=== PATIENT | female | born 1955 | race Caucasian/White ===

== ENCOUNTER 2020-06-20 12:55 | Observation (INO) | payer OTHER ==
[2020-06-20 13:39] VITALS: TEMP 98.5; BMI 26.0
[2020-06-20] MEDS ORDERED: ACETAMINOPHEN 1000 MG/100 ML VIAL (NON FORMULARY) IVPB ONE (13:58)
[2020-06-20] MEDS ORDERED: AZITHROMYCIN IVPB 500 MG in DEXTROSE 5%-WATER - 250 ML IVPB ONE (14:06)
[2020-06-20] MEDS ORDERED: ACETAMINOPHEN INJECTION 100 ML IVPB ONE (15:01)
[2020-06-20] MEDS ORDERED: AZITHROMYCIN IVPB 500 MG/250 ML BAG IVPB ONE (15:01)
[2020-06-20 15:14] LABS: VENOUS BASE EXCESS -0.7 mmol/L (-2-2); VENOUS O2 SATURATION 78.1 % (70-80); VENOUS PCO2 38.7 mmHg (38-52); VENOUS PH 7.406 (7.310-7.410)
[2020-06-20 15:20] LABS: BASO % 0.7 % (0-2.0); EOS % 1.4 % (0-4.5); HEMATOCRIT 44.3 % (32.4-45.2); HEMOGLOBIN 14.7 GM/dL (10.7-15.3); LYMPH % 31.9 % (8-40); MCH 28.3 pg (25.7-33.7); MCHC 33.2 g/dl (32.0-36.0); MEAN CELL VOLUME 85.5 fl (80-96); MEAN PLT VOLUME 10.3 fl (7.5-11.1); MONO % 8.7 % (3.8-10.2); NEUT % 57.3 % (42.8-82.8); PLATELET COUNT 194 K/MM3 (134-434); RBC 5.19 M/mm3 (3.60-5.2); RDW 15.2 % (11.6-15.6); WHITE BLOOD COUNT 7.4 K/mm3 (4.0-10.0)
[2020-06-20 15:26] LABS: INR 1.03 (0.83-1.09); PROTHROMBIN TIME (PATIENT) 12.5 SEC (9.7-13.0)
[2020-06-20 15:29] LABS: ACTIVATED PTT 33.8 SECONDS (25.2-36.5)
[2020-06-20 15:40] LABS: CHLORIDE 112 mmol/L (98-107); POTASSIUM 4.4 mmol/L (3.5-5.1); SODIUM 142 mmol/L (136-145)
[2020-06-20 15:41] LABS: CALCIUM 8.7 mg/dL (8.5-10.1)
[2020-06-20 15:42] LABS: ALBUMIN 3.9 g/dl (3.4-5.0); ANION GAP 5 MMOL/L (8-16); BLOOD UREA NITROGEN 8.7 mg/dL (7-18); CO2 25 mmol/L (21-32); GLUCOSE,RANDOM 87 mg/dL (74-106)
[2020-06-20 15:44] LABS: BILIRUBIN,DIRECT 0.1 mg/dL (0.0-0.2)
[2020-06-20 15:45] LABS: CREATININE 0.8 mg/dL (0.55-1.3); SGOT/AST 14 U/L (15-37); SGPT/ALT 16 U/L (13-61)
[2020-06-20 15:46] LABS: BILIRUBIN,TOTAL 0.3 mg/dL (0.2-1); TOT PROT 7.1 g/dl (6.4-8.2)
[2020-06-20 15:48] LABS: ALK PHOS 129 U/L (45-117)
[2020-06-20 15:49] LABS: LDH 204 U/L (84-246)
[2020-06-20 16:34] VITALS: BP 149/77; PULSE 68
[2020-06-20] MEDS ORDERED: LIDOCAINE 5% TOPICAL PATCH TP ONE (17:07)
[2020-06-20] MEDS ORDERED: LIDOCAINE 5% TOPICAL PATCH ONE (17:12)
[2020-06-20] MEDS ORDERED: IBUPROFEN 200 MG TABLET PO ONE (21:21)
[2020-06-20] MEDS ORDERED: IBUPROFEN 400 MG TABLET (FP) PO ONE (21:32)
[2020-06-20] MEDS ORDERED: LIDOCAINE PATCH REMOVAL MC SCH (22:00)
== END 2020-06-20 23:00 | disposition home or self-care (01) ==
LOC: JER 12:55 → JERBED 18:49
PROVIDERS: ADMIT Hospitalist; ATTEND Hospitalist
PROC: 3E033NZ Introduction of Analgesics, Hypnotics, Sedatives into Peripheral Vein, Percutaneous Approach (ICD-10-PCS; principal; 2020-06-20)
PROC: 3E03329 Introduction of Other Anti-infective into Peripheral Vein, Percutaneous Approach (ICD-10-PCS; 2020-06-20)
DX: R07.9 Chest pain, unspecified (principal); R06.02 Shortness of breath; Z21 Asymptomatic human immunodeficiency virus [HIV] infection status; F41.8 Other specified anxiety disorders; I10 Essential (primary) hypertension; E78.5 Hyperlipidemia, unspecified; M54.9 Dorsalgia, unspecified; G89.29 Other chronic pain; R05 Cough; F17.210 Nicotine dependence, cigarettes, uncomplicated
CPT/HCPCS: 36415; 71045-TC-FY; 80053; 82248; 82550; 82728; 82803; 83605; 83615; 83880; 84484; 85025; 85379; 85610; 85730; 86140; 87040; 87804; 93005; 93010; 96365; 96375; 99285-25; C9803; G0378; J0131; U0003

== ENCOUNTER 2022-07-28 11:55 | Emergency (ER) | payer OTHER ==
[2022-07-28 12:13] VITALS: TEMP 98; BMI 24.6
[2022-07-28] MEDS ORDERED: DEXAMETHASONE SOD PHOSPHATE 10 MG/1 ML VIAL IVPUSH ONE (14:20)
[2022-07-28] MEDS ORDERED: ALBUTEROL SO4 2.5/IPRATROPIUM 0.5 INH SOL 3 ML VIAL.NEB. NEB ONE ×2 (14:20→14:45)
[2022-07-28] MEDS ORDERED: CYCLOBENZAPRINE HCL 10 MG TABLET (FP) PO ONE (14:22)
[2022-07-28] MEDS ORDERED: ACETAMINOPHEN 325 MG TABLET (FP) PO ONE (14:22)
[2022-07-28 14:42] LABS: EOS % 0.5 % (0-4.5); HEMATOCRIT 43.1 % (32.4-45.2); HEMOGLOBIN 13.7 GM/dL (10.7-15.3); LYMPH % 31.6 % (8-40); MCH 26.8 pg (25.7-33.7); MCHC 31.9 g/dl (32.0-36.0); MEAN PLT VOLUME 9.4 fl (7.5-11.1); MONO % 8.2 % (3.8-10.2); NEUT % 58.7 % (42.8-82.8); PLATELET COUNT 193 10^3/uL (134-434); RBC 5.12 M/mm3 (3.60-5.2); RDW 15.9 % (11.6-15.6); WHITE BLOOD COUNT 6.7 K/mm3 (4.0-10.0)
[2022-07-28] MEDS ORDERED: DEXAMETHASONE SOD PHOSPHATE 10 MG/1 ML VIAL ONE (14:45)
[2022-07-28] MEDS ORDERED: CYCLOBENZAPRINE HCL 5 MG TABLET ONE (14:46)
[2022-07-28] MEDS ORDERED: ACETAMINOPHEN 325 MG TABLET (FP) ONE (14:46)
[2022-07-28 15:11] LABS: CALCIUM 9.5 mg/dL (8.5-10.1)
[2022-07-28 15:12] LABS: ALBUMIN 3.8 g/dl (3.4-5.0); BLOOD UREA NITROGEN 12.4 mg/dL (7-18)
[2022-07-28 15:15] LABS: CREATININE 0.7 mg/dL (0.55-1.3)
[2022-07-28 15:16] LABS: BILIRUBIN,TOTAL 0.4 mg/dL (0.2-1)
[2022-07-28 16:48] VITALS: BP 150/63; PULSE 76; RESP 20
== END 2022-07-28 16:49 | disposition home or self-care (01) ==
LOC: JER 11:55
PROC: 3E033GC Introduction of Other Therapeutic Substance into Peripheral Vein, Percutaneous Approach (ICD-10-PCS; principal; 2022-07-28)
PROC: 3E0F7GC Introduction of Other Therapeutic Substance into Respiratory Tract, Via Natural or Artificial Opening (ICD-10-PCS; 2022-07-28)
DX: R07.9 Chest pain, unspecified (principal)
CPT/HCPCS: 0241U-QW; 36415; 71046-TC-FY; 80053; 84484; 85025; 93005; 93010; 99285-25; J1100

== ENCOUNTER 2023-03-11 01:09 | Inpatient (IN) | payer MEDICARE, OTHER ==
[2023-03-11] MEDS ORDERED: ONDANSETRON 4 MG/2 ML VIAL IVPUSH ONE (01:54)
[2023-03-11] MEDS ORDERED: morphine CARPU-JECT 4 MG/1 ML DISP.SYRIN IVPUSH ONE ×2 (01:54→03:08)
[2023-03-11] MEDS ORDERED: morphine SULFATE 4 MG/ML VIAL ONE ×2 (02:05→03:09)
[2023-03-11] MEDS ORDERED: ONDANSETRON 4 MG/2 ML VIAL ONE ×2 (02:05→11:03)
[2023-03-11 02:37] LABS: HEMATOCRIT 42.8 % (32.4-45.2); HEMOGLOBIN 14.2 GM/dL (10.7-15.3); MCH 27.9 pg (25.7-33.7); MCHC 33.2 g/dl (32.0-36.0); MEAN PLT VOLUME 10.2 fl (7.5-11.1); PLATELET COUNT 168 10^3/uL (134-434); RDW 15.1 % (11.6-15.6); WHITE BLOOD COUNT 10.2 K/mm3 (4.0-10.0)
[2023-03-11 02:59] LABS: INR 1.05 (0.83-1.09); PROTHROMBIN TIME (PATIENT) 12.2 SEC (9.7-13.0)
[2023-03-11 03:02] LABS: ACTIVATED PTT 29.7 SECONDS (25.2-36.5)
[2023-03-11 03:06] LABS: POTASSIUM 3.4 mmol/L (3.5-5.1)
[2023-03-11 03:08] LABS: CALCIUM 9.7 mg/dL (8.5-10.1)
[2023-03-11 03:09] LABS: ALBUMIN 3.7 g/dl (3.4-5.0); BLOOD UREA NITROGEN 13.5 mg/dL (7-18)
[2023-03-11 03:14] LABS: TOT PROT 6.6 g/dl (6.4-8.2)
[2023-03-11 03:35] LABS: BILIRUBIN,TOTAL 0.4 mg/dL (0.2-1)
[2023-03-11] MEDS ORDERED: morphine CARPU-JECT 2 MG/1 ML DISP.SYRIN IVPUSH PRN (04:32)
[2023-03-11] MEDS ORDERED: POTASSIUM CHLORIDE ORAL LIQUID 20 MEQ/15 ML PO ONE ×2 (04:33→14:00)
[2023-03-11] MEDS ORDERED: hydrOXYzine PAMOATE 25 MG CAPSULE (FP) PO PRN (05:09)
[2023-03-11] MEDS ORDERED: POTASSIUM CHLORIDE ORAL LIQUID 20 MEQ/15 ML ONE (05:22)
[2023-03-11] MEDS ORDERED: HYDROmorphone HCl 2 MG/ML VIAL IVPUSH PRN (05:38)
[2023-03-11] MEDS ORDERED: LACTATED RINGERS SOLUTION 1,000 ML/1,000 ML INFUS.BAG IV SCH ×2 (05:45→13:45)
[2023-03-11] MEDS ORDERED: HYDROmorphone HCl 2 MG/ML VIAL ONE ×3 (08:32→17:16)
[2023-03-11] MEDS ORDERED: hydrOXYzine PAMOATE 25 MG CAPSULE (FP) PO ONE (08:32)
[2023-03-11] MEDS ORDERED: PANTOPRAZOLE 40 MG TABLET PO ONE (09:37)
[2023-03-11] MEDS ORDERED: ESCITALOPRAM OXALATE 10 MG TABLET ONE (09:38)
[2023-03-11] MEDS ORDERED: LISINOPRIL 20 MG TABLET ONE (09:38)
[2023-03-11] MEDS ORDERED: morphine SO4 SUSTAINED ACTING 30 MG TABLET.SA PO ONE ×2 (09:38→14:24)
[2023-03-11] MEDS ORDERED: ONDANSETRON 4 MG/2 ML VIAL IVPB PRN (09:47)
[2023-03-11] MEDS ORDERED: HYDROmorphone HCl 2 MG/ML VIAL IVPB PRN (09:48)
[2023-03-11] MEDS: ESCITALOPRAM OXALATE 10 MG TABLET PO SCH (09:55)
[2023-03-11] MEDS: BENZTROPINE MESYLATE 0.5 MG TABLET (FP) PO SCH (09:55)
[2023-03-11] MEDS: LISINOPRIL 20 MG TABLET PO SCH (09:56)
[2023-03-11] MEDS: ABACAVIR/DOLUTEGRAVIR/LAMIVUDI (TRIUMEQ) TABLET PO SCH (09:56)
[2023-03-11] MEDS: risperiDONE 1 MG TABLET PO SCH (09:56)
[2023-03-11] MEDS: PANTOPRAZOLE 40 MG TABLET PO SCH (09:56)
[2023-03-11] MEDS ORDERED: MORPHINE SULFATE 60 MG PO SCH (10:00)
[2023-03-11] MEDS ORDERED: morphine SO4 SUSTAINED ACTING 30 MG TABLET.SA PO SCH (10:00)
[2023-03-11] MEDS ORDERED: HYDROmorphone HCl 2 MG/ML VIAL IVPB ONE (10:45)
[2023-03-11 12:34] LABS: VENOUS BASE EXCESS 0.3 mmol/L (-2-2); VENOUS O2 SATURATION 99.6 % (70-80); VENOUS PCO2 22.9 mmHg (38-52); VENOUS PH 7.571 (7.310-7.410)
[2023-03-11 13:02] LABS: POTASSIUM 3.2 mmol/L (3.5-5.1)
[2023-03-11 13:04] LABS: ALBUMIN 3.4 g/dl (3.4-5.0)
[2023-03-11 13:05] LABS: BLOOD UREA NITROGEN 13.9 mg/dL (7-18); MAGNESIUM 1.4 mg/dL (1.8-2.4)
[2023-03-11 13:06] LABS: CREATININE 0.7 mg/dL (0.55-1.3)
[2023-03-11 13:08] LABS: PHOSPHOROUS 2.6 mg/dL (2.5-4.9)
[2023-03-11 13:09] LABS: BILIRUBIN,TOTAL 0.5 mg/dL (0.2-1); TOT PROT 6.2 g/dl (6.4-8.2)
[2023-03-11 13:23] LABS: LACTIC ACID 2.2 mmol/L (0.4-2.0)
[2023-03-11] MEDS: ACETAMINOPHEN 1000 MG/100 ML BAG IVPB SCH (13:59)
[2023-03-11] MEDS ORDERED: KETOROLAC TROMETHAMINE 30 MG/1 ML VIAL IVPUSH ONE (14:00)
[2023-03-11] MEDS: morphine SO4 SUSTAINED ACTING 30 MG TABLET.SA PO SCH ×2 (14:41→21:59)
[2023-03-11] MEDS: HYDROmorphone HCl 2 MG/ML VIAL IVPB PRN (17:30)
[2023-03-11 18:33] VITALS: BMI 22.3
[2023-03-11] MEDS: DOCUSATE SODIUM 100 MG CAPSULE (FP) PO SCH (21:40)
[2023-03-11] MEDS: ATORVASTATIN CA 10 MG TABLET (FP) PO SCH (21:40)
[2023-03-12] MEDS: ACETAMINOPHEN 1000 MG/100 ML BAG IVPB SCH ×2 (01:06→06:01)
[2023-03-12] MEDS: morphine SO4 SUSTAINED ACTING 30 MG TABLET.SA PO SCH ×3 (06:00→22:03)
[2023-03-12 09:14] LABS: BASO % 0.4 % (0-2.0); EOS % 0.4 % (0-4.5); HEMATOCRIT 28.5 % (32.4-45.2); HEMOGLOBIN 9.6 GM/dL (10.7-15.3); LYMPH % 29.5 % (8-40); MCH 28.8 pg (25.7-33.7); MCHC 33.7 g/dl (32.0-36.0); MEAN CELL VOLUME 85.4 fl (80-96); MEAN PLT VOLUME 10.9 fl (7.5-11.1); MONO % 12.4 % (3.8-10.2); NEUT % 57.3 % (42.8-82.8); PLATELET COUNT 138 10^3/uL (134-434); RBC 3.34 M/mm3 (3.60-5.2); RDW 15.2 % (11.6-15.6); WHITE BLOOD COUNT 8.1 K/mm3 (4.0-10.0)
[2023-03-12 09:15] LABS: HEMOGLOBIN 9.6 GM/dL (10.7-15.3); MCH 28.1 pg (25.7-33.7); MEAN CELL VOLUME 85.2 fl (80-96); MEAN PLT VOLUME 11.3 fl (7.5-11.1); PLATELET COUNT 139 10^3/uL (134-434); RDW 15.3 % (11.6-15.6); WHITE BLOOD COUNT 7.8 K/mm3 (4.0-10.0)
[2023-03-12 09:18] LABS: POTASSIUM 3.8 mmol/L (3.5-5.1)
[2023-03-12 09:21] LABS: ALBUMIN 3.1 g/dl (3.4-5.0); BLOOD UREA NITROGEN 14.8 mg/dL (7-18); CALCIUM 8.1 mg/dL (8.5-10.1)
[2023-03-12 09:25] LABS: CREATININE 0.8 mg/dL (0.55-1.3)
[2023-03-12 09:26] LABS: BILIRUBIN,TOTAL 0.4 mg/dL (0.2-1); TOT PROT 5.4 g/dl (6.4-8.2)
[2023-03-12] MEDS: risperiDONE 1 MG TABLET PO SCH (09:32)
[2023-03-12] MEDS: POLYETHYLENE GLYCOL (HEALTHYLAX) 3350 17 GM PACKET PO SCH (09:32)
[2023-03-12] MEDS: PANTOPRAZOLE 40 MG TABLET PO SCH (09:33)
[2023-03-12] MEDS: ESCITALOPRAM OXALATE 10 MG TABLET PO SCH (09:33)
[2023-03-12] MEDS: DOCUSATE SODIUM 100 MG CAPSULE (FP) PO SCH ×2 (09:33→22:02)
[2023-03-12] MEDS: LISINOPRIL 20 MG TABLET PO SCH (09:33)
[2023-03-12] MEDS ORDERED: KETOROLAC TROMETHAMINE 30 MG/1 ML VIAL IVPUSH SCH (11:00)
[2023-03-12] MEDS: BENZTROPINE MESYLATE 0.5 MG TABLET (FP) PO SCH (11:25)
[2023-03-12] MEDS: ABACAVIR/DOLUTEGRAVIR/LAMIVUDI (TRIUMEQ) TABLET PO SCH (11:26)
[2023-03-12] MEDS: SODIUM CHLORIDE 1,000 ML IV SCH (13:25)
[2023-03-12] MEDS: KETOROLAC TROMETHAMINE 30 MG/1 ML VIAL IVPUSH SCH (17:01)
[2023-03-12] MEDS ORDERED: MAGNESIUM SULF 50% (8.12 MEQ/2 ML-1 GM VIAL) IVPB ONE (17:03)
[2023-03-12] MEDS: ATORVASTATIN CA 10 MG TABLET (FP) PO SCH (22:02)
[2023-03-13] MEDS: KETOROLAC TROMETHAMINE 30 MG/1 ML VIAL IVPUSH SCH ×3 (02:06→17:08)
[2023-03-13] MEDS: morphine SO4 SUSTAINED ACTING 30 MG TABLET.SA PO SCH ×3 (06:44→22:47)
[2023-03-13 08:19] LABS: BASO % 0.7 % (0-2.0); EOS % 0.9 % (0-4.5); HEMATOCRIT 24.7 % (32.4-45.2); HEMOGLOBIN 8.2 GM/dL (10.7-15.3); LYMPH % 35.3 % (8-40); MCHC 33.3 g/dl (32.0-36.0); MEAN CELL VOLUME 84.1 fl (80-96); MONO % 12.5 % (3.8-10.2); NEUT % 50.6 % (42.8-82.8); PLATELET COUNT 117 10^3/uL (134-434); RBC 2.94 M/mm3 (3.60-5.2); RDW 15.3 % (11.6-15.6)
[2023-03-13 08:34] LABS: POTASSIUM 3.5 mmol/L (3.5-5.1)
[2023-03-13 08:40] LABS: CALCIUM 8.1 mg/dL (8.5-10.1)
[2023-03-13 08:42] LABS: ALBUMIN 2.7 g/dl (3.4-5.0); BLOOD UREA NITROGEN 14.9 mg/dL (7-18); MAGNESIUM 2.1 mg/dL (1.8-2.4)
[2023-03-13 08:44] LABS: CREATININE 0.7 mg/dL (0.55-1.3); PHOSPHOROUS 3.1 mg/dL (2.5-4.9)
[2023-03-13 08:45] LABS: BILIRUBIN,TOTAL 0.4 mg/dL (0.2-1); TOT PROT 4.9 g/dl (6.4-8.2)
[2023-03-13] MEDS ORDERED: ENOXAPARIN NA (PORCINE) 40 MG/0.4 ML DISP.SYRIN SQ SCH (10:00)
[2023-03-13] MEDS: risperiDONE 1 MG TABLET PO SCH (10:10)
[2023-03-13] MEDS: LISINOPRIL 20 MG TABLET PO SCH (10:10)
[2023-03-13] MEDS: BENZTROPINE MESYLATE 0.5 MG TABLET (FP) PO SCH (10:10)
[2023-03-13] MEDS: ESCITALOPRAM OXALATE 10 MG TABLET PO SCH (10:10)
[2023-03-13] MEDS: ABACAVIR/DOLUTEGRAVIR/LAMIVUDI (TRIUMEQ) TABLET PO SCH (10:10)
[2023-03-13] MEDS: DOCUSATE SODIUM 100 MG CAPSULE (FP) PO SCH ×2 (10:11→22:48)
[2023-03-13] MEDS: PANTOPRAZOLE 40 MG TABLET PO SCH (10:11)
[2023-03-13] MEDS: POLYETHYLENE GLYCOL (HEALTHYLAX) 3350 17 GM PACKET PO SCH (10:12)
[2023-03-13] MEDS: SODIUM CHLORIDE 1,000 ML IV SCH (13:43)
[2023-03-13] MEDS: HYDROmorphone HCl 2 MG/ML VIAL IVPB PRN (19:54)
[2023-03-13] MEDS: ATORVASTATIN CA 10 MG TABLET (FP) PO SCH (22:48)
[2023-03-14] MEDS: KETOROLAC TROMETHAMINE 30 MG/1 ML VIAL IVPUSH SCH (02:21)
[2023-03-14] MEDS: morphine SO4 SUSTAINED ACTING 30 MG TABLET.SA PO SCH ×2 (05:52→22:54)
[2023-03-14 07:12] LABS: BASO % 0.8 % (0-2.0); EOS % 1.3 % (0-4.5); HEMATOCRIT 21.3 % (32.4-45.2); LYMPH % 41.8 % (8-40); MCH 27.9 pg (25.7-33.7); MCHC 32.3 g/dl (32.0-36.0); MEAN CELL VOLUME 86.6 fl (80-96); MEAN PLT VOLUME 10.4 fl (7.5-11.1); MONO % 9.5 % (3.8-10.2); NEUT % 46.6 % (42.8-82.8); PLATELET COUNT 116 10^3/uL (134-434); RBC 2.46 M/mm3 (3.60-5.2); RDW 15.2 % (11.6-15.6); WHITE BLOOD COUNT 4.2 K/mm3 (4.0-10.0)
[2023-03-14 07:21] LABS: HEMOGLOBIN 6.9 GM/dL (10.7-15.3)
[2023-03-14 08:03] LABS: POTASSIUM 3.5 mmol/L (3.5-5.1)
[2023-03-14 08:07] LABS: ALBUMIN 2.3 g/dl (3.4-5.0); MAGNESIUM 1.8 mg/dL (1.8-2.4)
[2023-03-14 08:10] LABS: CREATININE 0.6 mg/dL (0.55-1.3); PHOSPHOROUS 3.4 mg/dL (2.5-4.9)
[2023-03-14 08:11] LABS: BILIRUBIN,TOTAL 0.4 mg/dL (0.2-1); TOT PROT 4.2 g/dl (6.4-8.2)
[2023-03-14 08:53] LABS: RETICULOCYTES 1.55 % (0.5-1.5)
[2023-03-14] MEDS ORDERED: HYDROmorphone HCl 2 MG/ML VIAL IVPB PRN (08:59)
[2023-03-14] MEDS ORDERED: hydrOXYzine PAMOATE 25 MG CAPSULE (FP) PO PRN ×2 (08:59→14:31)
[2023-03-14] MEDS ORDERED: ONDANSETRON 4 MG/2 ML VIAL IVPB PRN ×2 (08:59→14:31)
[2023-03-14] MEDS ORDERED: ceFAZolin SODIUM 1 GM VIAL ONE (09:34)
[2023-03-14] MEDS ORDERED: DOCUSATE SODIUM 100 MG CAPSULE (FP) PO SCH (10:00)
[2023-03-14] MEDS ORDERED: risperiDONE 1 MG TABLET PO SCH (10:00)
[2023-03-14] MEDS ORDERED: BENZTROPINE MESYLATE 0.5 MG TABLET (FP) PO SCH (10:00)
[2023-03-14] MEDS ORDERED: PANTOPRAZOLE 40 MG TABLET PO SCH (10:00)
[2023-03-14] MEDS ORDERED: ESCITALOPRAM OXALATE 10 MG TABLET PO SCH (10:00)
[2023-03-14] MEDS ORDERED: ABACAVIR/DOLUTEGRAVIR/LAMIVUDI (TRIUMEQ) TABLET PO SCH (10:00)
[2023-03-14] MEDS ORDERED: LISINOPRIL 20 MG TABLET PO SCH (10:00)
[2023-03-14] MEDS ORDERED: POLYETHYLENE GLYCOL (HEALTHYLAX) 3350 17 GM PACKET PO SCH (10:00)
[2023-03-14] MEDS ORDERED: PROPOFOL 40 ML ONE (10:28)
[2023-03-14] MEDS ORDERED: LIDOCAINE HCL/PF 2% SDV 5ML VIAL ONE ×2 (10:28→10:34)
[2023-03-14] MEDS ORDERED: SUCCINYLCHOLINE CHLORIDE 200 MG/10 ML SYRINGE ONE (10:31)
[2023-03-14] MEDS ORDERED: MIDAZOLAM HCL 2 MG/2 ML SINGLE DOSE VIAL ONE (10:32)
[2023-03-14] MEDS ORDERED: DEXAMETHASONE SOD PHOSPHATE 4 MG/1 ML VIAL ONE (10:33)
[2023-03-14] MEDS ORDERED: ROPIVACAINE HCL 0.5% 30ML VIAL ONE (10:33)
[2023-03-14] MEDS ORDERED: ROCURONIUM BROMIDE 50 MG/5 ML SYRINGE ONE ×2 (11:44→13:12)
[2023-03-14] MEDS ORDERED: ceFAZolin SODIUM 1 GM VIAL IVPB ONE (11:50)
[2023-03-14] MEDS ORDERED: SUGAMMADEX SODIUM 200 MG/2 ML VIAL ONE (12:34)
[2023-03-14] MEDS ORDERED: morphine SO4 SUSTAINED ACTING 30 MG TABLET.SA PO SCH (14:00)
[2023-03-14 15:50] LABS: HEMATOCRIT 31.2 % (32.4-45.2); HEMOGLOBIN 10.3 GM/dL (10.7-15.3); MCH 28.8 pg (25.7-33.7); MEAN CELL VOLUME 87.2 fl (80-96); MEAN PLT VOLUME 10.6 fl (7.5-11.1); PLATELET COUNT 114 10^3/uL (134-434); RBC 3.58 M/mm3 (3.60-5.2); RDW 14.9 % (11.6-15.6); WHITE BLOOD COUNT 6.8 K/mm3 (4.0-10.0)
[2023-03-14] MEDS: HYDROmorphone HCl 2 MG/ML VIAL IVPB PRN ×2 (18:19→23:30)
[2023-03-14] MEDS ORDERED: ceFAZolin 2 GRAM PREMIX BAG IVPB SCH (21:00)
[2023-03-14] MEDS: CEFAZOLIN SODIUM 2 GM in DEXTROSE 5%-WATER 100 ML IVPB SCH (21:54)
[2023-03-14] MEDS ORDERED: ATORVASTATIN CA 10 MG TABLET (FP) PO SCH (22:00)
[2023-03-14] MEDS: DOCUSATE SODIUM 100 MG CAPSULE (FP) PO SCH (22:56)
[2023-03-14] MEDS: ATORVASTATIN CA 10 MG TABLET (FP) PO SCH (22:56)
[2023-03-15] MEDS: HYDROmorphone HCl 2 MG/ML VIAL IVPB PRN ×4 (05:18→20:35)
[2023-03-15] MEDS: CEFAZOLIN SODIUM 2 GM in DEXTROSE 5%-WATER 100 ML IVPB SCH (05:19)
[2023-03-15] MEDS: morphine SO4 SUSTAINED ACTING 30 MG TABLET.SA PO SCH ×3 (05:20→22:17)
[2023-03-15 06:38] LABS: BASO % 0.4 % (0-2.0); EOS % 0.1 % (0-4.5); HEMATOCRIT 29.9 % (32.4-45.2); HEMOGLOBIN 10.3 GM/dL (10.7-15.3); MCH 29.4 pg (25.7-33.7); MCHC 34.5 g/dl (32.0-36.0); MEAN CELL VOLUME 85.4 fl (80-96); MEAN PLT VOLUME 9.9 fl (7.5-11.1); MONO % 11.3 % (3.8-10.2); NEUT % 76.2 % (42.8-82.8); PLATELET COUNT 140 10^3/uL (134-434); RDW 14.8 % (11.6-15.6); WHITE BLOOD COUNT 9.7 K/mm3 (4.0-10.0)
[2023-03-15 07:05] LABS: CHLORIDE 109 mmol/L (98-107); SODIUM 141 mmol/L (136-145)
[2023-03-15 07:07] LABS: CALCIUM 7.8 mg/dL (8.5-10.1)
[2023-03-15 07:08] LABS: ALBUMIN 2.6 g/dl (3.4-5.0); BLOOD UREA NITROGEN 6.4 mg/dL (7-18); CO2 24 mmol/L (21-32); GLUCOSE,RANDOM 138 mg/dL (74-106); MAGNESIUM 1.4 mg/dL (1.8-2.4)
[2023-03-15 07:11] LABS: CREATININE 0.5 mg/dL (0.55-1.3); SGOT/AST 30 U/L (15-37); SGPT/ALT 22 U/L (13-61)
[2023-03-15 07:12] LABS: BILIRUBIN,TOTAL 1.1 mg/dL (0.2-1)
[2023-03-15 07:13] LABS: ALK PHOS 97 U/L (45-117)
[2023-03-15 07:51] LABS: ANION GAP 8 MMOL/L (8-16); POTASSIUM 2.9 mmol/L (3.5-5.1)
[2023-03-15] MEDS: KCL 10 MEQ IVPB 10 MEQ/100 ML INFUS.BAG IVPB SCH ×3 (09:51→12:45)
[2023-03-15] MEDS: risperiDONE 1 MG TABLET PO SCH (09:54)
[2023-03-15] MEDS: ABACAVIR/DOLUTEGRAVIR/LAMIVUDI (TRIUMEQ) TABLET PO SCH (09:54)
[2023-03-15] MEDS: ESCITALOPRAM OXALATE 10 MG TABLET PO SCH (09:54)
[2023-03-15] MEDS: DOCUSATE SODIUM 100 MG CAPSULE (FP) PO SCH ×2 (09:56→22:18)
[2023-03-15] MEDS: PANTOPRAZOLE 40 MG TABLET PO SCH (09:56)
[2023-03-15] MEDS: POLYETHYLENE GLYCOL (HEALTHYLAX) 3350 17 GM PACKET PO SCH (09:56)
[2023-03-15] MEDS: BENZTROPINE MESYLATE 0.5 MG TABLET (FP) PO SCH (09:56)
[2023-03-15] MEDS: LISINOPRIL 20 MG TABLET PO SCH (09:59)
[2023-03-15] MEDS ORDERED: POTASSIUM CHLORIDE ORAL LIQUID 20 MEQ/15 ML PO ONE (10:00)
[2023-03-15] MEDS ORDERED: MAGNESIUM 2GM/50ML STERILE WATER IVPB IVPB ONE (14:00)
[2023-03-15 15:32] LABS: HEMATOCRIT 30.6 % (32.4-45.2); HEMOGLOBIN 10.3 GM/dL (10.7-15.3); MCH 28.7 pg (25.7-33.7); MCHC 33.6 g/dl (32.0-36.0); MEAN CELL VOLUME 85.5 fl (80-96); MEAN PLT VOLUME 10.3 fl (7.5-11.1); PLATELET COUNT 160 10^3/uL (134-434); RBC 3.58 M/mm3 (3.60-5.2); RDW 14.7 % (11.6-15.6); WHITE BLOOD COUNT 11.2 K/mm3 (4.0-10.0)
[2023-03-15] MEDS: POTASSIUM CHLORIDE TABS 20 MEQ TABLET.ER (FP) PO SCH (18:09)
[2023-03-15] MEDS: ATORVASTATIN CA 10 MG TABLET (FP) PO SCH (21:49)
[2023-03-16] MEDS: HYDROmorphone HCl 2 MG/ML VIAL IVPB PRN ×2 (02:02→19:54)
[2023-03-16] MEDS: morphine SO4 SUSTAINED ACTING 30 MG TABLET.SA PO SCH ×3 (07:03→21:33)
[2023-03-16 08:49] LABS: BASO % 0.4 % (0-2.0); EOS % 0.3 % (0-4.5); HEMATOCRIT 26.5 % (32.4-45.2); HEMOGLOBIN 9.1 GM/dL (10.7-15.3); LYMPH % 14.2 % (8-40); MCH 29.4 pg (25.7-33.7); MCHC 34.3 g/dl (32.0-36.0); MEAN CELL VOLUME 85.5 fl (80-96); MEAN PLT VOLUME 10.4 fl (7.5-11.1); MONO % 10.3 % (3.8-10.2); NEUT % 74.8 % (42.8-82.8); PLATELET COUNT 161 10^3/uL (134-434); RDW 15.3 % (11.6-15.6); WHITE BLOOD COUNT 9.5 K/mm3 (4.0-10.0)
[2023-03-16 09:15] LABS: POTASSIUM 3.8 mmol/L (3.5-5.1)
[2023-03-16 09:18] LABS: CALCIUM 7.8 mg/dL (8.5-10.1)
[2023-03-16 09:19] LABS: ALBUMIN 2.2 g/dl (3.4-5.0); BLOOD UREA NITROGEN 4.6 mg/dL (7-18); MAGNESIUM 1.8 mg/dL (1.8-2.4)
[2023-03-16 09:22] LABS: CREATININE 0.3 mg/dL (0.55-1.3); PHOSPHOROUS 2.3 mg/dL (2.5-4.9)
[2023-03-16 09:23] LABS: BILIRUBIN,TOTAL 1.1 mg/dL (0.2-1)
[2023-03-16 09:24] LABS: TOT PROT 4.6 g/dl (6.4-8.2)
[2023-03-16] MEDS: POTASSIUM CHLORIDE TABS 20 MEQ TABLET.ER (FP) PO SCH (09:50)
[2023-03-16] MEDS: ABACAVIR/DOLUTEGRAVIR/LAMIVUDI (TRIUMEQ) TABLET PO SCH (09:50)
[2023-03-16] MEDS: POLYETHYLENE GLYCOL (HEALTHYLAX) 3350 17 GM PACKET PO SCH (09:50)
[2023-03-16] MEDS: risperiDONE 1 MG TABLET PO SCH (09:51)
[2023-03-16] MEDS: LISINOPRIL 20 MG TABLET PO SCH (09:51)
[2023-03-16] MEDS: PANTOPRAZOLE 40 MG TABLET PO SCH (09:51)
[2023-03-16] MEDS: DOCUSATE SODIUM 100 MG CAPSULE (FP) PO SCH ×2 (09:51→21:33)
[2023-03-16] MEDS: ESCITALOPRAM OXALATE 10 MG TABLET PO SCH (09:51)
[2023-03-16] MEDS: BENZTROPINE MESYLATE 0.5 MG TABLET (FP) PO SCH (09:52)
[2023-03-16] MEDS: ATORVASTATIN CA 10 MG TABLET (FP) PO SCH (21:34)
[2023-03-17] MEDS: HYDROmorphone HCl 2 MG/ML VIAL IVPB PRN ×2 (02:34→10:12)
[2023-03-17] MEDS: morphine SO4 SUSTAINED ACTING 30 MG TABLET.SA PO SCH ×3 (06:18→22:22)
[2023-03-17 07:07] LABS: BASO % 0.9 % (0-2.0); EOS % 0.6 % (0-4.5); HEMATOCRIT 27.5 % (32.4-45.2); HEMOGLOBIN 9.3 GM/dL (10.7-15.3); LYMPH % 17.1 % (8-40); MCH 29.3 pg (25.7-33.7); MCHC 33.7 g/dl (32.0-36.0); MEAN CELL VOLUME 86.9 fl (80-96); MEAN PLT VOLUME 9.7 fl (7.5-11.1); MONO % 12.1 % (3.8-10.2); NEUT % 69.3 % (42.8-82.8); PLATELET COUNT 189 10^3/uL (134-434); RBC 3.16 M/mm3 (3.60-5.2); RDW 15.3 % (11.6-15.6); WHITE BLOOD COUNT 7.6 K/mm3 (4.0-10.0)
[2023-03-17 07:11] LABS: URINE APPEARANCE CLEAR; URINE BILIRUBIN NEGATIVE (NEGATIVE); URINE COLOR YELLOW; URINE GLUCOSE (UA) NEGATIVE (NEGATIVE); URINE KETONE 3+ (NEGATIVE); URINE LEUK ESTERASE NEGATIVE (NEGATIVE); URINE NITRITE NEGATIVE (NEGATIVE); URINE PROTEIN NEGATIVE (NEGATIVE)
[2023-03-17 07:13] LABS: EPI CELLS 9 /uL (0-25.1); HYALINE CASTS 0 /uL (0-3.1); URINE BACTERIA 1 /uL (0-1359); URINE RBC 20 /uL (0-23.9); URINE WBC 4 /uL (0-25.8)
[2023-03-17 07:23] LABS: POTASSIUM 3.7 mmol/L (3.5-5.1)
[2023-03-17 07:26] LABS: ALBUMIN 2.5 g/dl (3.4-5.0); BLOOD UREA NITROGEN 4.8 mg/dL (7-18); CALCIUM 8.3 mg/dL (8.5-10.1); MAGNESIUM 1.6 mg/dL (1.8-2.4)
[2023-03-17 07:29] LABS: CREATININE 0.4 mg/dL (0.55-1.3); PHOSPHOROUS 2.8 mg/dL (2.5-4.9)
[2023-03-17 07:31] LABS: BILIRUBIN,TOTAL 1.2 mg/dL (0.2-1); TOT PROT 5.2 g/dl (6.4-8.2)
[2023-03-17] MEDS: LISINOPRIL 20 MG TABLET PO SCH (10:16)
[2023-03-17] MEDS: POLYETHYLENE GLYCOL (HEALTHYLAX) 3350 17 GM PACKET PO SCH (10:16)
[2023-03-17] MEDS: risperiDONE 1 MG TABLET PO SCH (10:16)
[2023-03-17] MEDS: DOCUSATE SODIUM 100 MG CAPSULE (FP) PO SCH ×2 (10:16→22:22)
[2023-03-17] MEDS: POTASSIUM CHLORIDE TABS 20 MEQ TABLET.ER (FP) PO SCH (10:16)
[2023-03-17] MEDS: PANTOPRAZOLE 40 MG TABLET PO SCH (10:17)
[2023-03-17] MEDS: ESCITALOPRAM OXALATE 10 MG TABLET PO SCH (10:17)
[2023-03-17] MEDS: ABACAVIR/DOLUTEGRAVIR/LAMIVUDI (TRIUMEQ) TABLET PO SCH (10:18)
[2023-03-17] MEDS: BENZTROPINE MESYLATE 0.5 MG TABLET (FP) PO SCH (10:18)
[2023-03-17] MEDS: ATORVASTATIN CA 10 MG TABLET (FP) PO SCH (22:22)
[2023-03-18] MEDS: morphine SO4 SUSTAINED ACTING 30 MG TABLET.SA PO SCH ×3 (06:26→21:48)
[2023-03-18] MEDS: POTASSIUM CHLORIDE TABS 20 MEQ TABLET.ER (FP) PO SCH (09:22)
[2023-03-18] MEDS: ABACAVIR/DOLUTEGRAVIR/LAMIVUDI (TRIUMEQ) TABLET PO SCH (09:22)
[2023-03-18] MEDS: BENZTROPINE MESYLATE 0.5 MG TABLET (FP) PO SCH (09:22)
[2023-03-18] MEDS: POLYETHYLENE GLYCOL (HEALTHYLAX) 3350 17 GM PACKET PO SCH (09:22)
[2023-03-18] MEDS: DOCUSATE SODIUM 100 MG CAPSULE (FP) PO SCH ×2 (09:23→21:47)
[2023-03-18] MEDS: risperiDONE 1 MG TABLET PO SCH (09:23)
[2023-03-18] MEDS: PANTOPRAZOLE 40 MG TABLET PO SCH (09:23)
[2023-03-18] MEDS: LISINOPRIL 20 MG TABLET PO SCH (09:23)
[2023-03-18] MEDS: ESCITALOPRAM OXALATE 10 MG TABLET PO SCH (09:24)
[2023-03-18] MEDS: HYDROmorphone HCl 2 MG/ML VIAL IVPB PRN ×2 (10:35→17:29)
[2023-03-18] MEDS: ATORVASTATIN CA 10 MG TABLET (FP) PO SCH (21:48)
[2023-03-19] MEDS: morphine SO4 SUSTAINED ACTING 30 MG TABLET.SA PO SCH ×3 (05:56→22:06)
[2023-03-19] MEDS: HYDROmorphone HCl 2 MG/ML VIAL IVPB PRN ×2 (09:54→16:37)
[2023-03-19] MEDS: POTASSIUM CHLORIDE TABS 20 MEQ TABLET.ER (FP) PO SCH (09:56)
[2023-03-19] MEDS: PANTOPRAZOLE 40 MG TABLET PO SCH (09:57)
[2023-03-19] MEDS: risperiDONE 1 MG TABLET PO SCH (09:57)
[2023-03-19] MEDS: BENZTROPINE MESYLATE 0.5 MG TABLET (FP) PO SCH (09:57)
[2023-03-19] MEDS: DOCUSATE SODIUM 100 MG CAPSULE (FP) PO SCH ×2 (09:58→22:06)
[2023-03-19] MEDS: ABACAVIR/DOLUTEGRAVIR/LAMIVUDI (TRIUMEQ) TABLET PO SCH (09:58)
[2023-03-19] MEDS: POLYETHYLENE GLYCOL (HEALTHYLAX) 3350 17 GM PACKET PO SCH (09:58)
[2023-03-19] MEDS: ESCITALOPRAM OXALATE 10 MG TABLET PO SCH (09:58)
[2023-03-19] MEDS: LISINOPRIL 20 MG TABLET PO SCH (09:59)
[2023-03-19] MEDS: ATORVASTATIN CA 10 MG TABLET (FP) PO SCH (22:06)
[2023-03-20] MEDS: morphine SO4 SUSTAINED ACTING 30 MG TABLET.SA PO SCH ×3 (05:35→22:23)
[2023-03-20] MEDS: HYDROmorphone HCl 2 MG/ML VIAL IVPB PRN ×2 (08:26→18:27)
[2023-03-20] MEDS ORDERED: MAGNESIUM OXIDE 400 MG TABLET (FP) PO ONE (08:45)
[2023-03-20] MEDS: ABACAVIR/DOLUTEGRAVIR/LAMIVUDI (TRIUMEQ) TABLET PO SCH (09:32)
[2023-03-20] MEDS: POTASSIUM CHLORIDE TABS 20 MEQ TABLET.ER (FP) PO SCH (09:33)
[2023-03-20] MEDS: ESCITALOPRAM OXALATE 10 MG TABLET PO SCH (09:33)
[2023-03-20] MEDS: PANTOPRAZOLE 40 MG TABLET PO SCH (09:33)
[2023-03-20] MEDS: BENZTROPINE MESYLATE 0.5 MG TABLET (FP) PO SCH (09:33)
[2023-03-20] MEDS: risperiDONE 1 MG TABLET PO SCH (09:33)
[2023-03-20] MEDS: LISINOPRIL 20 MG TABLET PO SCH (09:33)
[2023-03-20] MEDS: DOCUSATE SODIUM 100 MG CAPSULE (FP) PO SCH ×2 (09:33→22:23)
[2023-03-20] MEDS: POLYETHYLENE GLYCOL (HEALTHYLAX) 3350 17 GM PACKET PO SCH (09:35)
[2023-03-20] MEDS: ATORVASTATIN CA 10 MG TABLET (FP) PO SCH (22:23)
[2023-03-21] MEDS: morphine SO4 SUSTAINED ACTING 30 MG TABLET.SA PO SCH ×2 (05:35→14:33)
[2023-03-21] MEDS: POTASSIUM CHLORIDE TABS 20 MEQ TABLET.ER (FP) PO SCH (11:23)
[2023-03-21] MEDS: ABACAVIR/DOLUTEGRAVIR/LAMIVUDI (TRIUMEQ) TABLET PO SCH (11:23)
[2023-03-21] MEDS: POLYETHYLENE GLYCOL (HEALTHYLAX) 3350 17 GM PACKET PO SCH (11:23)
[2023-03-21] MEDS: HYDROmorphone HCl 2 MG/ML VIAL IVPB PRN ×2 (11:24→22:50)
[2023-03-21] MEDS: DOCUSATE SODIUM 100 MG CAPSULE (FP) PO SCH ×2 (11:29→22:52)
[2023-03-21] MEDS: risperiDONE 1 MG TABLET PO SCH (11:29)
[2023-03-21] MEDS: ESCITALOPRAM OXALATE 10 MG TABLET PO SCH (11:30)
[2023-03-21] MEDS: BENZTROPINE MESYLATE 0.5 MG TABLET (FP) PO SCH (11:31)
[2023-03-21] MEDS: LISINOPRIL 20 MG TABLET PO SCH (11:31)
[2023-03-21] MEDS: PANTOPRAZOLE 40 MG TABLET PO SCH (11:31)
[2023-03-21] MEDS: ATORVASTATIN CA 10 MG TABLET (FP) PO SCH (22:51)
[2023-03-22] MEDS: HYDROmorphone HCl 2 MG/ML VIAL IVPB PRN (06:30)
[2023-03-22] MEDS: DOCUSATE SODIUM 100 MG CAPSULE (FP) PO SCH (09:47)
[2023-03-22] MEDS: risperiDONE 1 MG TABLET PO SCH (09:47)
[2023-03-22] MEDS: POLYETHYLENE GLYCOL (HEALTHYLAX) 3350 17 GM PACKET PO SCH (09:47)
[2023-03-22] MEDS: ESCITALOPRAM OXALATE 10 MG TABLET PO SCH (09:48)
[2023-03-22] MEDS: POTASSIUM CHLORIDE TABS 20 MEQ TABLET.ER (FP) PO SCH (09:48)
[2023-03-22] MEDS: PANTOPRAZOLE 40 MG TABLET PO SCH (09:48)
[2023-03-22] MEDS: LISINOPRIL 20 MG TABLET PO SCH (09:48)
[2023-03-22] MEDS: ABACAVIR/DOLUTEGRAVIR/LAMIVUDI (TRIUMEQ) TABLET PO SCH (09:49)
[2023-03-22] MEDS: BENZTROPINE MESYLATE 0.5 MG TABLET (FP) PO SCH (09:49)
[2023-03-22] MEDS ORDERED: HYDROmorphone HCL 2 MG TABLET PO PRN (12:02)
[2023-03-22 13:54] VITALS: RESP 20
[2023-03-22] MEDS ORDERED: morphine SO4 SUSTAINED ACTING 30 MG TABLET.SA PO SCH (15:15)
[2023-03-22 19:07] VITALS: BP 107/51; PULSE 87; TEMP 98.7
[2023-03-23] MEDS ORDERED: ENOXAPARIN NA (PORCINE) 40 MG/0.4 ML DISP.SYRIN SQ SCH (10:00)
== END 2023-03-22 20:20 | DRG 483 ==
LOC: JER 01:09 → JERBED 04:37 → J4W 18:05 → J7W 03-13 21:11
PROVIDERS: ADMIT Internal Medicine; ATTEND Internal Medicine
PROC: 0LS30ZZ Reposition Right Upper Arm Tendon, Open Approach (ICD-10-PCS; 2023-03-14)
PROC: 0RRJ00Z Replacement of Right Shoulder Joint with Reverse Ball and Socket Synthetic Substitute, Open Approach (ICD-10-PCS; principal; 2023-03-14 11:00)
DX: S42.291A Other displaced fracture of upper end of right humerus, initial encounter for closed fracture (principal); F11.23 Opioid dependence with withdrawal; D62 Acute posthemorrhagic anemia; I10 Essential (primary) hypertension; E78.5 Hyperlipidemia, unspecified; F32.A Depression, unspecified; F41.9 Anxiety disorder, unspecified; E87.6 Hypokalemia; E83.42 Hypomagnesemia; W01.0XXA Fall on same level from slipping, tripping and stumbling without subsequent striking against object, initial encounter; Y93.89 Activity, other specified; Y92.002 Bathroom of unspecified non-institutional (private) residence as the place of occurrence of the external cause; Y99.8 Other external cause status; K21.9 Gastro-esophageal reflux disease without esophagitis
CPT/HCPCS: 36415; 36430; 70450-TC; 71045-TC-FY; 72125-TC; 73030-TC-RT-FY; 73060-TC-RT-FY; 73200-TC-RT; 80048; 80053; 81003; 82272; 82607; 82728; 82803; 83540; 83550; 83605; 83735; 84100; 84484; 85025; 85027; 85045; 85610; 85730; 86850; 86900; 86901; 86922; 87086; 93005; 93010; 94760; 97116-GP; 97162-GP; 99285-25; C1713; C1776; C1889; P9058